=== PATIENT | female | born 1945 | race Caucasian/White ===

== ENCOUNTER 2024-04-01 09:48 | Emergency (ER) | payer OTHER, SELFPAY ==
[2024-04-01 09:51] VITALS: BP 138/88; PULSE 72; RESP 18; TEMP 37.4; O2SAT 98; BMI 23.9
--- NOTE | 2024-04-01 10:09 | ED_ITS ---
HPI - Head Injury General Chief complaint: Head Injury/Pain Stated complaint: Fell last night, hit head, dizzy Time Seen by Provider: 04/01/24 09:55 History of Present Illness HPI Narrative: This 78-year-old female is sent here from urgent care because of a fall that occurred last evening. The patient is not sure if she lost consciousness. She tripped on a curb and fell onto her right side. She did hit her head and has some bruising around her right eye. There is minimal swelling. It appears that there is a small laceration on her right eyelid that is now well approximated. The patient states that her picked her up and she was able to ambulate since then. She does report some headache but not severe headache. She does not have any neurologic deficits. She is not on anticoagulants. Related Data Home Medications ?Medication ?Instructions ?Recorded ?Confirmed bupropion HCl 150 mg 24 hr tablet, 450 mg PO DAILY 04/01/24 04/01/24 extended release chlorthalidone 25 mg tablet mg PO 04/01/24 04/01/24 diclofenac sodium 50 mg 50 mg PO BID 04/01/24 04/01/24 tablet,delayed release fluoxetine 20 mg capsule 20 mg PO DAILY 04/01/24 04/01/24 lisinopril 30 mg tablet mg PO 04/01/24 04/01/24 trazodone 50 mg tablet mg PO 04/01/24 04/01/24 Allergies Allergy/AdvReac Type Severity Reaction Status Date / Time celecoxib [From Celebrex] Allergy Verified 04/01/24 09:29 hydrochlorothiazide Allergy Verified 04/01/24 09:29 Sulfa (Sulfonamide Allergy Verified 04/01/24 09:29 Antibiotics) Review of Systems Status of ROS: Reports: 10 or more systems reviewed and unremarkable except as noted in History and below Narrative: Constitutional: No fevers, no weight gain or loss. Eyes: No discharge. No vision changes. HENT: No congestion, no sore throat, no ear pain. Cardiovascular: No chest pain, no palpitations. Respiratory: No shortness of breath, no wheezes, no cough. Gastrointestinal: No abdominal pain, no vomiting, no diarrhea. Genitourinary: No dysuria, no hematuria. Musculoskeletal: Normal range of motion. Skin: No rashes, no pruritis. Neurological: No dizziness, weakness, sensory change, speech change. Endo/Heme/Allergies: No bruising or bleeding. No polydipsia. Pysch: no suicidality, no anxiety, no insomnia. All other systems reviewed and are negative. Exam Narrative: Exam Narrative: Constitutional: Well-developed, well-nourished, no acute distress. HEENT: Erythema around the right eye with mild swelling. The right upper eyelid has a small laceration about 1 cm in length who is wound edges are well approximated. Neck: Normal range of motion. Nontender. Supple. Heart: Regular. No murmurs. Normal rate. Intact distal pulses. Lungs: Clear to auscultation. No chest discomfort. No wheezes, rhonchi, or rales. Abdomen: Normal bowel sounds. Nontender. No rebound tenderness. Genitalia: Deferred. Back: No midline tenderness. Normal range of motion. Extremities: Normal range of motion. Mild swelling in the right wrist but normal range of motion. She reports some right shoulder pain but again has full range of motion. Skin: Intact. No rash. Warm. No erythema or pallor. Neurologic: No altered sensation. No weakness. Alert and oriented. Psychiatric: No suicidality. No anxiety or depression. No insomnia. Nursing notes and vitals signs are reviewed. Const: Vital Signs, click to edit/add: Vital Signs - 24 hr 04/01/24 09:51 Temperature 99.3 F Pulse Rate [Right Femoral] 72 Respiratory Rate 18 Blood Pressure [Ri ght Upper Arm] 138/88 Pulse Oximetry 98 Oxygen Delivery Me thod Room Air Course Vital Signs Vital signs: Initial Vital Signs Temperature 99.3 F 04/01/24 09:51 Temperature Source Temporal Artery Scan 04/01/24 09:51 Pulse Rate 72 04/01/24 09:51 Respiratory Rate 18 04/01/24 09:51 Blood Pressure 138/88 04/01/24 09:51 Blood Pressure Mean 104 04/01/24 09:51 Blood Pressure Position Sitting 04/01/24 09:51 Pulse Oximetry 98 04/01/24 09:51 Oxygen Delivery Method Room Air 04/01/24 09:51 Vital Signs Temperature 99.3 F 04/01/24 09:51 Pulse Rate 72 04/01/24 09:51 Respiratory Rate 18 04/01/24 09:51 Blood Pressure 138/88 04/01/24 09:51 Pulse Oximetry 98 04/01/24 09:51 Oxygen Delivery Method Room Air 04/01/24 09:51 Temperature 99.3 F 04/01/24 09:51 Pulse Rate 72 04/01/24 09:51 Respiratory Rate 18 04/01/24 09:51 Blood Pressure 138/88 04/01/24 09:51 Pulse Oximetry 98 04/01/24 09:51 Oxygen Delivery Method Room Air 04/01/24 09:51 MDM - Head Injury MDM Narrative Medical decision making narrative: This patient comes in for evaluation of a head injury that occurred about 16 hours prior to arrival here. She was uncertain whether she had loss of consciousness. She is not on any anticoagulants but does take and states for back pain. CT scan of her head returns with evidence of a small subdural hematoma along the falx cerebri measuring 4 mm without any mass effect. The patient does report a [id number] headache but states that she has had worse headaches than this. She does not have any neurologic deficit. This injury occurred about 16 hours ago. I explained to the patient that we typically would observe and Rony scan 6 hours later after initial finding of an injury head she come in last evening. With [address] injury [address] scan is likely stable. The patient prefers to return home. I did discuss options for admission on observation. She is discharged home then with a prescription for [place]. Imaging Data CT scan - head: Radiologist's impression: 1. Mild acute subdural hematoma along the right anterior falx measuring up to 4 mm thickness. No significant mass effect. 2. Moderate generalized parenchymal volume loss. Discharge Plan Discharge Clinical Impression: Closed head injury, Subdural hematoma Patient Disposition: Home w/ Parent or Adult Condition: Stable Additional Instructions: Take medication as needed and indicated. Increase activity as tolerated. Follow up with MD return if worsening. Prescriptions: No Action bupropion HCl 150 mg tablet extended release 24 hr 450 mg PO DAILY lisinopril 30 mg tablet PO chlorthalidone 25 mg tablet PO fluoxetine 20 mg capsule 20 mg PO DAILY diclofenac sodium 50 mg tablet,delayed release (DR/EC) 50 mg PO BID trazodone 50 mg tablet PO Follow Up/Referrals: Provider,Not a Local [Primary Care Provider] - Stand Alone Forms: [employer] Info Instructions
--- NOTE | 2024-04-01 10:09 | CRLHL7_ITS ---
For Patients: As a result of the Century Cures Act, medical imaging exams and procedure reports are released immediately into your electronic medical record. You may view this report before your referring provider. If you have questions, please contact your health care provider. INDICATION: FALL, INJURY TECHNIQUE: CT of the head without contrast. Coronal and sagittal reformats. Bone and soft tissue algorithms. COMPARISON: No prior studies available for comparison at this institution. FINDINGS: Mild acute subdural hematoma along the right anterior falx measuring up to 4 mm thickness. No evidence of acute cortical infarction. No mass effect or midline shift. Moderate generalized parenchymal volume loss. Mild regions of decreased attenuation within the periventricular and subcortical white matter of both cerebral hemispheres most likely reflect chronic microvascular ischemic disease and age related change in this patient. Vascular calcifications within the carotid siphons. Orbital contents are normal. No calvarial fractures. No lytic or sclerotic osseous lesions within the calvarium or skull base. Scalp and other imaged soft tissue structures are normal. Mastoid air cells are clear. Small air-fluid level in the right maxillary sinus. Bilateral temporomandibular joint degenerative changes. IMPRESSION: 1. Mild acute subdural hematoma along the right anterior falx measuring up to 4 mm thickness. No significant mass effect. 2. Moderate generalized parenchymal volume loss. Please note that all CT scans at this facility use dose modulation, iterative reconstruction, and/or weight-based dosing when appropriate to reduce radiation dose to as low as reasonably achievable. Dictated by Ochoa Taylor MD @ 04/01/2024 11:01:00 AM (Electronically Signed)
== END 2024-04-01 11:35 | disposition home or self-care (01) ==
PROVIDERS: Emergency Provider Emergency Medicine Emergency Medical Services
DX: I62.01 Nontraumatic acute subdural hemorrhage (principal); W01.0XXA Fall on same level from slipping, tripping and stumbling without subsequent striking against object, initial encounter
CPT/HCPCS: 70450; 99284

== ENCOUNTER 2024-04-29 09:23 | Emergency (ER) | payer OTHER, SELFPAY ==
[2024-04-29 09:39] VITALS: BP 166/102; PULSE 82; RESP 18; TEMP 36.6; O2SAT 99; BMI 21.8
--- NOTE | 2024-04-29 09:57 | CRLHL7_ITS ---
For Patients: As a result of the Century Cures Act, medical imaging exams and procedure reports are released immediately into your electronic medical record. You may view this report before your referring provider. If you have questions, please contact your health care provider. INDICATION: COVID positive. TECHNIQUE: Chest 1 views. COMPARISON: None. FINDINGS: Cardiovasculature and mediastinum: Heart size is normal. Unremarkable mediastinum. Lungs and pleural spaces: Lungs are clear. No sign of infiltrate or mass. No sign of pleural effusion. No pneumothorax. Bones and soft tissues: No significant findings. IMPRESSION: Negative chest. Dictated by Kasi Monroe MD @ 04/29/2024 10:33:59 AM (Electronically Signed)
--- NOTE | 2024-04-29 09:58 | ED.GENADULT ---
HPI - General Adult General Chief complaint: Weakness Stated complaint: Covid+, feeling ill Time Seen by Provider: 04/29/24 09:30 History of Present Illness HPI narrative: Patient is a 78 year white female is generally healthy, she and her test positive COVID about a week ago. She continues to feel ill. Able to take fluids. Her O2 sat here is 100% on room air and she is afebrile. She does not really have a significant cough. She still feels weak. She does have a daughter that has helped out the family and that has been helpful for her. She is contemplating staying with her daughter. Related Data Home Medications ?Medication ?Instructions ?Recorded ?Confirmed bupropion HCl 150 mg 24 hr tablet, 450 mg PO DAILY 04/01/24 04/01/24 extended release chlorthalidone 25 mg tablet mg PO 04/01/24 04/01/24 diclofenac sodium 50 mg 50 mg PO BID 04/01/24 04/01/24 tablet,delayed release fluoxetine 20 mg capsule 20 mg PO DAILY 04/01/24 04/01/24 lisinopril 30 mg tablet mg PO 04/01/24 04/01/24 trazodone 50 mg tablet mg PO 04/01/24 04/01/24 Previous Rx's ?Medication ?Instructions ?Recorded hydrocodone 5 mg-acetaminophen 325 1 tab PO Q4-6H PRN pain #15 tabs 04/01/24 mg tablet Allergies Allergy/AdvReac Type Severity Reaction Status Date / Time celecoxib [From Celebrex] Allergy Verified 04/01/24 09:29 hydrochlorothiazide Allergy Verified 04/01/24 09:29 Sulfa (Sulfonamide Allergy Verified 04/01/24 09:29 Antibiotics) Review of Systems Status of ROS: Reports: 6 or more systems reviewed and unremarkable except as noted in History and below PFSH PFSH Social History Smoking Status: Never smoker Do you use any of these nicotine containing products: None Second hand tobacco smoke exposure: Yes How often do you have a drink containing alcohol: never How often do you have six or more drinks on one occasion: Never AUDIT-C Alcohol total score: 0 Non-prescribed substance use: denies use service: No Exam Narrative: Exam Narrative: Objective: Patient's vital signs are within normal limits other than slightly elevated systolic and diastolic pressure, afebrile, O2 sat 99% on room air HEENT is unremarkable other mild dry mucous membranes patient is alert orient x3 noncyanotic Neck is supple Pulse regular Lungs are clear no rales or wheezing Abdomen benign Extremities are no edema neurologic nonfocal Const: Vital Signs, click to edit/add: Vital Signs - 24 hr 04/29/24 09:39 04/29/24 10:30 04/29/24 11:00 Temperature 97.8 F Pulse Rate 89 86 Pulse Rate [Pulse Oximeter] 82 Respiratory Rate 18 16 16 Blood Pressure 150/85 H 150/94 H Blood Pressure [Ri ght Upper Arm] 166/102 H Pulse Oximetry 99 97 96 Oxygen Delivery Me thod Room Air 04/29/24 11:50 Temperature 97.8 F Pulse Rate Pulse Rate [Pulse Oximeter] 82 Respiratory Rate 16 Blood Pressure Blood Pressure [Ri ght Upper Arm] 166/102 H Pulse Oximetry Oxygen Delivery Me thod Course Vital Signs Vital signs: Initial Vital Signs Temperature 97.8 F 04/29/24 09:39 Temperature Source Temporal Artery Scan 04/29/24 09:39 Pulse Rate 82 04/29/24 09:39 Pulse Rhythm Regular 04/29/24 09:39 Respiratory Rate 18 04/29/24 09:39 Blood Pressure 166/102 H 04/29/24 09:39 Blood Pressure Mean 123 H 04/29/24 09:39 Blood Pressure Position Supine 04/29/24 09:39 Pulse Oximetry 99 04/29/24 09:39 Oxygen Delivery Method Room Air 04/29/24 09:39 Vital Signs Temperature 97.8 F 04/29/24 09:39 Pulse Rate 82 04/29/24 09:39 Respiratory Rate 18 04/29/24 09:39 Blood Pressure 166/102 H 04/29/24 09:39 Pulse Oximetry 99 04/29/24 09:39 Oxygen Delivery Method Room Air 04/29/24 09:39 Temperature 97.8 F 04/29/24 11:50 Pulse Rate 82 04/29/24 11:50 Respiratory Rate 16 04/29/24 11:50 Blood Pressure 166/102 H 04/29/24 11:50 Pulse Oximetry 96 04/29/24 11:00 Oxygen Delivery Method Room Air 04/29/24 09:39 Medications Administered Medications: Discontinued Medications Generic Name Dose Route Start Last Admin Trade Name Jaki PRN Reason Stop Dose Admin Sodium Chloride 1,000 mls @ 6,000 mls/hr 04/29/24 10:00 04/29/24 11:20 0.9 % Sodium Chloride 1000 Ml IV 04/29/24 10:09 Infused .Q10M DERRICK Infusion Potassium Bicarbonate 25 meq 04/29/24 10:51 04/29/24 11:11 Potassium Bicarb 25 Meq Effervescent Tab PO 04/29/24 10:52 25 meq ONCE ONE Administration Medical Decision Making MDM Narrative Medical decision making narrative: [age] white female with COVID, she is on Paxil of id currently. She is completing that tomorrow. She is not hypoxic and does have a fever. I think at this point simply rehydrating check her electrolytes to be appropriate and labs if these are within normal limits I think she can probably stay with her daughter small sips of fluid Tylenol as needed finish the Paxil of id. Recheck in update doctor in the next 2-3 days, certainly return to ED sooner problems or concerns. Of note is about a month ago the patient did have a small subdural hematoma, from a fall, and had been presenting to the ER about 16 hours after the fall and had a CT scan that looked like a small subdural but no midline shift or other concern. After 16 hours was felt that that was likely stable. She has had no new headache issues or other concerns about mental status. I think this is likely all due to COVID. Addendum 11:14 a.m. the patient's potassium is a little low should get a potassium replacement, she got IV fluid. Her chest x-ray looks negative by my review, her labs look reassuring. Rest fluids finisher Paxil of id and give her DrCorine Update the next couple of days return as needed. Lab Data Labs: Lab Results 04/29/24 Range/Units 10:15 WBC 4.93 (4.50-11.00) K/uL RBC 4.16 (4.00-5.20) m/uL Hgb 12.2 (12.0-16.0) gm/dL Hct 35.5 (33.0-51.0) % MCV 85 (80-100) fL MCH 29 (26-34) pg MCHC 34 (32-36) gm/dL RDW Coeff of Efren 11.7 (11.5-15.5) % Plt Count 268 (140-440) K/uL Neut % (Auto) 69.5 (42.0-72.0) % Lymph % (Auto) 17.8 L (20-44) % [place] % (Auto) 10.3 (0.0-11.0) % Eos % (Auto) 1.8 (0.0-7.0) % Baso % (Auto) 0.4 (0.0-3.0) % Neut # (Auto) 3.42 (1.7-7.0) K/uL Lymph # (Auto) 0.90 (0.90-2.90) K/uL [place] # (Auto) 0.50 (0.00-0.90) K/UL Eos # (Auto) 0.09 (0.00-0.50) K/uL Baso # (Auto) 0.02 (0.00-0.30) K/uL Abs Immat Gran (auto) 0.01 (0.00-0.30) K/uL Imm/Tot Granulo (auto) 0.2 % Sodium 132 L (135-149) mmol/L Potassium 3.0 L (3.6-5.1) mmol/L Chloride 95 L (96-114) mmol/L Carbon Dioxide 25 (20-32) mmol/L Anion Gap 12 (7-15) mEq/L BUN 16 (7-30) mg/dL Creatinine 1.1 (0.5-1.5) mg/dL Estimated Creat Clear 35.99 Estimated GFR 52 ml/min Glucose 100 (60-115) mg/dL Calcium 10.2 (8.4-10.6) mg/dL Discharge Plan Discharge Clinical Impression: COVID-19, Dehydration Patient Disposition: Home w/ Parent or Adult Condition: Stable Instructions: COVID-19 (Coronavirus Disease 2019) (ED) Additional Instructions: Rest, fluids, complete your medication for DELILAH. Recommend staying with her family. Light activity. Update your regular doctor by phone in the next 2-3 days with symptoms, return to ED sooner problems or concerns such as shortness of breath chest pain. Prescriptions: No Action bupropion HCl 150 mg tablet extended release 24 hr 450 mg PO DAILY lisinopril 30 mg tablet PO chlorthalidone 25 mg tablet PO fluoxetine 20 mg capsule 20 mg PO DAILY diclofenac sodium 50 mg tablet,delayed release (DR/EC) 50 mg PO BID trazodone 50 mg tablet PO hydrocodone-acetaminophen 5-325 mg tablet 1 tab PO Q4-6H PRN (Reason: pain) Qty: 15 0RF Follow Up/Referrals: Provider,Not a Local [Non-Staff] - Stand Alone Forms: [employer] Info Instructions
[2024-04-29] MEDS: 0.9 % SODIUM CHLORIDE 1000 ml 1,000 ML IV (10:19)
[2024-04-29 10:25] LABS: Basophils Absolute Auto 0.02 K/uL (0.00-0.30); Basophils Percent Auto 0.4 % (0.0-3.0); Eosinophils Absolute Auto 0.09 K/uL (0.00-0.50); Eosinophils Percent Auto 1.8 % (0.0-7.0); Hematocrit 35.5 % (33.0-51.0); Hemoglobin* 12.2 gm/dL (12.0-16.0); Immature Granulocytes Abs Auto 0.01 K/uL (0.00-0.30); Immature Granulocytes Pct Auto 0.2 %; Lymphocytes Percent Auto 17.8 % (20-44); Mean Corpuscular HGB Conc 34 gm/dL (32-36); Mean Corpuscular Hemoglobin 29 pg (26-34); Mean Corpuscular Volume 85 fL (80-100); Monocytes Percent Auto 10.3 % (0.0-11.0); Neutrophils Absolute Auto 3.42 K/uL (1.7-7.0); Neutrophils Percent Auto 69.5 % (42.0-72.0); Platelet Count* 268 K/uL (140-440); RDW Coefficient of Variation % 11.7 % (11.5-15.5); Red Blood Count 4.16 m/uL (4.00-5.20); White Blood Count* 4.93 K/uL (4.50-11.00)
[2024-04-29 10:30] VITALS: BP 150/85; PULSE 89; RESP 16; O2SAT 97
[2024-04-29 10:38] LABS: Slide Review Reflex No
[2024-04-29 10:40] LABS: Chloride* 95 mmol/L (96-114); Sodium* 132 mmol/L (135-149)
[2024-04-29 10:43] LABS: Anion Gap 12 mEq/L (7-15); Carbon Dioxide* 25 mmol/L (20-32); Creatinine* 1.1 mg/dL (0.5-1.5); Est. Creatinine Clearance* 35.99; Estimated Glomerular Filt Rate 52 ml/min
[2024-04-29 10:44] LABS: Blood Urea Nitrogen* 16 mg/dL (7-30); Calcium* 10.2 mg/dL (8.4-10.6); Glucose* 100 mg/dL (60-115)
[2024-04-29 11:00] VITALS: BP 150/94; PULSE 86; RESP 16; O2SAT 96
[2024-04-29] MEDS: POTASSIUM BICARB 25 MEQ EFFERVESCENT TAB PO (11:11)
[2024-04-29 11:50] VITALS: BP 166/102; PULSE 82; RESP 16; TEMP 36.6
== END 2024-04-29 11:50 | disposition home or self-care (01) ==
LOC: ED 10:34
PROVIDERS: Emergency Provider Family Medicine; PCP Family Medicine
DX: U07.1 COVID-19 (principal); E86.0 Dehydration
CPT/HCPCS: 36415; 71045; 80048; 84132; 85025; 96360; 99284; A9270; J7030